=== PATIENT | male | born 1975 | race Caucasian/White ===

== ENCOUNTER → 2023-04-21 | Outpatient (CLI) | payer OTHER ==
--- NOTE | 2023-04-21 11:43 | CT ---
EXAMINATION TYPE: CT sinus wo con DATE OF EXAM: 04/21/2023 COMPARISON: NONE HISTORY: Sinusitis. Vertigo x8 days. CT DLP: 621 mGycm. Automated Exposure Control for Dose Reduction was Utilized. TECHNIQUE: CT scan of the sinuses is performed without contrast, axial images are obtained, coronal r eformatted images are also reviewed. FINDINGS: Tiny 4 mm mucous retention or polyp inferior right maxillary sinusitis image 80 otherwise p aranasal sinuses are grossly clear without suspicious opacification or air-fluid levels. The ostiome atal complex is patent bilaterally on coronal image 30. Visualized portion of mastoid air cells show no abnormal opacification. The globes are intact bilate rally. Old fracture of the nasal bridge is suspected. Visualized brain parenchyma grossly unremarkabl e. IMPRESSION: The sinuses are essentially clear and the ostiomeatal complex is patent bilaterally.
== END | disposition home or self-care (01) ==
LOC: RADCTMAIN 11:15
PROVIDERS: ATTEND Family Medicine
DX: J32.9 Chronic sinusitis, unspecified (principal); R42 Dizziness and giddiness
CPT/HCPCS: 70486

== ENCOUNTER 2023-05-23 09:40 | Day surgery (SDC) | payer OTHER ==
[~2023-05-23 09:40] MED LIST: LIDOCAINE 1% (10MG/ML) FOR IV START INTRADERMA PRN
[2023-05-23] MEDS: LACTATED RINGERS 1,000 ML IV SCH (10:49)
[2023-05-23 11:05] VITALS: RESP 16; TEMP 97.2
[2023-05-23] MEDS ORDERED: PROPOFOL 10 MG/ML 20 ML VIAL IV ONE (11:31)
--- NOTE | 2023-05-23 11:49 | P.PCN ---
Date of Procedure: 05/23/23 Procedure(s) Performed: BRIEF HISTORY: Patient is a 48-year-old pleasant white male male scheduled for an elective colonoscopy as a part of screening for colon cancer. PROCEDURE PERFORMED: Colonoscopy with biopsy PREOPERATIVE DIAGNOSIS: Screening for colon cancer IV sedation per Anesthesia. PROCEDURE: After informed consent was obtained, the patient, was brought into the endoscopy unit. IV sedation was administered by Anesthesia under continuous monitoring. Digital rectal examination was normal. Initially the Olympus CF-160 flexible video colonoscope was then inserted in the rectum, gradually advanced into the cecum without any difficulty. Careful examination was performed as the scope was gradually being withdrawn. Ileocecal valve and the appendiceal orifice were visualized and appeared normal. Prep was excellent. Mucosa of the cecum, had a 3 mm sessile polyp that was removed by cold biopsy. Rest of the ascending colon, transverse colon, descending colon, sigmoid colon, and rectum appeared normal. Retroflexion was performed in the rectum and no lesions were seen. The patient tolerated the procedure well. IMPRESSION: 3 mm cecal polyp status post cold biopsy Rest of the colon appeared normal RECOMMENDATIONS: Findings of this examination were discussed with the patient as well as his family. He was advised to follow with the biopsy results. If the biopsy reveals adenoma he can have a repeat colonoscopy in 5 years.
[2023-05-23 12:34] VITALS: BP 133/83; PULSE 72
== END 2023-05-23 12:47 | disposition home or self-care (01) ==
LOC: ORWHC2ENDO 09:40
PROVIDERS: ATTEND Internal Medicine Gastroenterology
DX: Z12.11 Encounter for screening for malignant neoplasm of colon (principal); K63.5 Polyp of colon; Z79.899 Other long term (current) drug therapy
CPT/HCPCS: 88305; 45380; J2704